=== PATIENT | male | born 1995 | race Caucasian/White ===

== ENCOUNTER 2023-04-01 13:50 | Emergency (ER) | payer MEDICAID ==
[~2023-04-01] VITALS: Ht 177.8 cm; Wt 113.4 kg
[2023-04-01 13:56] VITALS: BP_SYST 149
--- NOTE | 2023-04-01 14:00 | NUR ---
Placed in room 5 . Placed on director of cardiac cath lab, blood pressure machine and pulse oximeter. To gown for exam. Side rails up. Pt BIBA for possibe OD. Per Medic, Pt's matthias called 911 when pt became unconscious after inhaling PCP. Report given to Bette.
--- NOTE | 2023-04-01 14:05 | NUR ---
MD SHIN AT BEDSIDE TO EVALUATE PT
--- NOTE | 2023-04-01 14:30 | NUR ---
EKG OBTAINED ON PATIENT SHOWED SINUS TACHYCARDIA MD AWARE NO NEW ORDERS AT THIS TIME.
--- NOTE | 2023-04-01 14:36 | NUR ---
[employer]ician bedside collecting specimen.
--- NOTE | 2023-04-01 14:40 | NUR ---
22 GAUGE IV CATHETERE STARTED IN THE LEFT WRIST. SALINE LOCK FLUSHED WITH 5 ML OF 0.9% SODIUM CHLORIDE. NO PAIN OR REDNESS AT SITE.
[2023-04-01 14:54] LABS: BASOPHILS # (AUTO) 0.1 K/uL (0.0-0.2); EOSINOPHILS # (AUTO) 0.2 K/uL (0.0-0.4); HEMATOCRIT 39.6 % (36-54); HEMOGLOBIN 13.3 g/dL (14.0-18.0); LYMPHOCYTES # (AUTO) 2.1 K/uL (1.0-5.5); LYMPHOCYTES % (AUTO) 26.3 % (20.5-51.5); MEAN CORPUSCULAR HEMOGLOBIN 29 pg (27-31); MEAN CORPUSCULAR HGB CONC 34 % (32-36); MEAN CORPUSCULAR VOLUME 85 fL (79.0-98.0); MONOCYTES # (AUTO) 0.5 K/uL (0.0-1.0); MONOCYTES % (AUTO) 6.2 % (1.7-9.3); NEUTROPHILS % (AUTO) 63.5 % (40.0-70.0); PLATELET COUNT (AUTO) 238 K/uL (130-430); RED BLOOD CELL COUNT(AUTO) 4.64 MIL/uL (4.2-6.2); RED CELL DISTRIBUTION WIDTH 14.1 % (9.0-15.0); WHITE BLOOD COUNT (AUTO) 7.8 K/uL (4.8-10.8)
[2023-04-01 15:04] LABS: ANION GAP 9 (5-15); CALCIUM 8.3 mg/dL (8.4-11.0); CHLORIDE 104 mmol/L (98-107); CREATININE 0.78 mg/dL (0.55-1.30); GFR AFRICAN AMERICAN 151 mL/min (>90); GLUCOSE 109 mg/dL (70-99); UREA NITROGEN, BLOOD 14 mg/dL (8-21)
[2023-04-01 15:08] LABS: ACETONE, SERUM NEGATIVE (NEGATIVE)
--- NOTE | 2023-04-01 15:18 | NUR ---
PT BIB AMBULANCE FOR PCP OVERDOES. PT WAS AT HOME AND FOUND WHAT HE THOUGHT WAS PCP UNDER HIS SINK AT HOME. HE WAS TALKING TO HIS GIRLFRIEND AND SHE REPORTED HE WAS DISORIENTED AND NOT RESPONDING TO COMANDS. GF CALLED 911 AND WAS BROUGHT IN BY EMS IN [place]. HEART RATE WAS ELEVATED AND EKG SHOWED UNSYMPATHERTIC SINUS TACYCARDIA MD AWARE. PT HAS A HISTORY OF FENTANYL AND OPIOD USE AND HISTORY OF VENOUS ULCERS ON THE TOP OF THE FOOT. PT STATES NKDA. PT DENIES ANY SOB, N/V,D. PT IN BED WITH THE SIDE RAILS UP.
[2023-04-01 15:21] LABS: ALANINE AMINOTRANSFERASE 39 U/L (12-78); ALBUMIN 3.7 g/dL (3.4-4.8); ASPARTATE AMINOTRANSFERASE 19 U/L (10-37); C-REACTIVE PROTEIN QUANT 0.7 mg/dL (0-0.5); TOTAL BILIRUBIN 0.1 mg/dL (0.0-1.0)
[2023-04-01 15:22] LABS: ACETAMINOPHEN < 1 ug/mL (1-30); ALCOHOL, BLOOD < 3 mg/dL (<10)
--- NOTE | 2023-04-01 16:00 | NUR ---
Patient given written and verbal discharge instructions and verbalizes understanding. ER MD discussed with patient the results and treatment provided. Patient in stable condition. ID arm band removed. IV catheter removed intact and dressing applied, no active bleeding. Pain Scale 0/10 verbalized by patient. Opportunity for questions provided and answered. Discharge fact sheet provided.
[2023-04-01 17:22] VITALS: BP_SYST 150
== END 2023-04-01 16:00 | disposition home or self-care (01) ==
LOC: SED 13:50
DX: F16.10 Hallucinogen abuse, uncomplicated (principal); R41.82 Altered mental status, unspecified; Z79.899 Other long term (current) drug therapy
CPT/HCPCS: 99285; 70450; 71045; 80053; 82009; 82550; 85025; 86140; 84484; 36415; 93005; 76376; 83605; G0482; G0480; G0481